=== PATIENT | male | born 1995 | race Caucasian/White ===

== ENCOUNTER 2021-02-16 08:44 | Inpatient (IN) | payer OTHER ==
[~2021-02-16] VITALS: Ht 180.3 cm; Wt 77.1 kg
[2021-02-16] VITALS (19 sets, daily range): BP systolic 107–144; BP diastolic 63–89
[2021-02-16 09:20] LABS: BASOPHILS % (AUTO) 0.2 % (0.0-5.0); EOSINOPHILS % (AUTO) 0.2 % (0.0-8.0); LYMPHOCYTES % (AUTO) 9.6 % (21.0-51.0); MEAN CORPUSCULAR HEMOGLOBIN 29.5 pg (27.0-33.0); MEAN CORPUSCULAR HGB CONC 34.3 g/dL (32.0-36.0); MEAN CORPUSCULAR VOLUME 86.1 fL (79-99); MONOCYTES % (AUTO) 8.4 % (3.0-13.0); NEUTROPHILS % (AUTO) 81.2 % (40.0-77.0); PLATELET COUNT (AUTO) 289 K/uL (130-400); RED BLOOD CELL COUNT(AUTO) 5.46 MIL/uL (4.50-6.20); RED CELL DISTRIBUTION WIDTH 11.9 % (11.0-15.5); WHITE BLOOD COUNT (AUTO) 16.3 K/uL (4.8-10.8)
[2021-02-16 09:21] LABS: APPEARANCE,URINE Clear (CLEAR); BILIRUBIN,URINE Negative (NEGATIVE); COLOR,URINE Yellow (YELLOW); GLUCOSE, URINE (UA) Negative (NEGATIVE); KETONES,URINE Trace mg/dL (NEGATIVE); LEUKOCYTE ESTERASE ,URINE Negative (NEGATIVE); NITRATE,URINE Negative (NEGATIVE); OCCULT BLOOD,URINE Negative (NEGATIVE); PROTEIN,URINE Negative (NEGATIVE)
[2021-02-16 09:22] LABS: BACTERIA,URINE Rare /HPF (None Seen); RBC,URINE 0-1 /HPF (0-1); WBC,URINE 0-1 /HPF (0-1)
[2021-02-16 09:23] LABS: SQUAMOUS EPITHELIAL CELL,UR Rare /HPF (0-2)
[2021-02-16 09:29] LABS: AMPHET/METH SCREEN,URINE NEGATIVE (NEGATIVE); BARBITURATE SCREEN, URINE NEGATIVE (NEGATIVE); BENZODIAZEPINES SCREEN,URINE NEGATIVE (NEGATIVE); CANNABINOID SCREEN,URINE NEGATIVE (NEGATIVE); COCAINE SCREEN,URINE NEGATIVE (NEGATIVE); OPIATE SCREEN,URINE NEGATIVE (NEGATIVE); PHENCYCLIDINE SCREEN,URINE NEGATIVE (NEGATIVE)
[2021-02-16 09:45] LABS: ALBUMIN 4.2 g/dL (3.5-5.0); BILIRUBIN,TOTAL 0.7 mg/dL (0.2-1.0); POTASSIUM 3.8 mmol/L (3.5-5.1); TOTAL PROTEIN, SERUM 7.3 g/dL (6.0-8.3)
[2021-02-16] MEDS ORDERED: MORPHINE SULFATE 4 MG/1ML SYG ONE ×2 (10:07→11:34)
[2021-02-16] MEDS ORDERED: ONDANSETRON HCL 4 MG/2 ML VIAL ONE ×2 (10:07→16:59)
[2021-02-16] MEDS ORDERED: ZOSYN 3.375GM+NS 50ML 50 ML IV ONE (11:23)
[2021-02-16] MEDS ORDERED: MORPHINE SULFATE 4 MG/1ML SYG IV PRN (12:00)
[2021-02-16] MEDS ORDERED: ACETAMINOPHEN 325 MG TAB PO PRN (12:00)
[2021-02-16] MEDS ORDERED: ONDANSETRON HCL 4 MG/2 ML VIAL IVP PRN (12:00)
[2021-02-16] MEDS ORDERED: MIDAZOLAM HCL 1 MG/ML 2ML VIAL ONE (16:59)
[2021-02-16] MEDS ORDERED: GLYCOPYRROLATE 1 MG/5 ML SYRINGE ONE (16:59)
[2021-02-16] MEDS ORDERED: PROPOFOL 10 MG/ML 20ML VIAL IV ONE (16:59)
[2021-02-16] MEDS ORDERED: LIDOCAINE PF 2% 5ML ABBOJECT ONE (16:59)
[2021-02-16] MEDS ORDERED: SUCCINYLCHOLINE 200MG/10ML SYR ONE (16:59)
[2021-02-16] MEDS ORDERED: DEXAMETHASONE SOD PHOSPHATE 10MG/ML 1ML VIAL ONE (16:59)
[2021-02-16] MEDS ORDERED: NEOSTIGMINE 5MG/5ML SYR IV ONE (16:59)
[2021-02-16] MEDS ORDERED: ROCURONIUM 10MG/1ML SYR 10 MG/ML ML ONE (17:00)
[2021-02-16] MEDS ORDERED: FENTANYL CITRATE PF 50 MCG/1 ML 2ML VIAL ONE ×2 (17:00→17:31)
[2021-02-16] MEDS ORDERED: ATROPINE SULFATE 0.1 MG/ML 10 ML SYG IVP ONE (17:01)
[2021-02-16] MEDS ORDERED: BUPIVACAINE/PF 0.25% 30ML VIAL IJ ONE (17:26)
[2021-02-16] MEDS ORDERED: LIDOCAINE 1%-EPI 1:100,000 20 ML VIAL IJ ONE (17:26)
[2021-02-16] MEDS ORDERED: MEPERIDINE-PF 25 MG/ML SYG ONE ×2 (18:48→19:01)
[2021-02-16] MEDS: OXYCODONE/ACETAMIN 5/325MG TAB PO PRN (21:03)
[2021-02-16] MEDS: ZOSYN 3.375GM+NS 50ML 50 ML IV SCH (21:03)
[2021-02-16] MEDS: SODIUM CHLORIDE 0.9% 1000ML 1,000 ML IV SCH (21:04)
[2021-02-17] MEDS: ZOSYN 3.375GM+NS 50ML 50 ML IV SCH ×2 (03:45→13:00)
[2021-02-17 05:31] VITALS: BP 103/52
[2021-02-17 05:37] LABS: BASOPHILS % (AUTO) 0.1 % (0.0-5.0); HEMATOCRIT 40.8 % (42-54); LYMPHOCYTES % (AUTO) 5.5 % (21.0-51.0); MEAN CORPUSCULAR HEMOGLOBIN 29.3 pg (27.0-33.0); MEAN CORPUSCULAR HGB CONC 33.6 g/dL (32.0-36.0); MEAN CORPUSCULAR VOLUME 87.4 fL (79-99); MONOCYTES % (AUTO) 4.1 % (3.0-13.0); NEUTROPHILS % (AUTO) 89.8 % (40.0-77.0); PLATELET COUNT (AUTO) 269 K/uL (130-400); RED BLOOD CELL COUNT(AUTO) 4.67 MIL/uL (4.50-6.20); RED CELL DISTRIBUTION WIDTH 11.8 % (11.0-15.5); WHITE BLOOD COUNT (AUTO) 13.3 K/uL (4.8-10.8)
[2021-02-17 05:53] LABS: ALBUMIN 3.4 g/dL (3.5-5.0); BILIRUBIN,TOTAL 0.8 mg/dL (0.2-1.0); POTASSIUM 4.3 mmol/L (3.5-5.1); TOTAL PROTEIN, SERUM 6.5 g/dL (6.0-8.3)
[2021-02-17] MEDS: OXYCODONE/ACETAMIN 5/325MG TAB PO PRN ×2 (07:43→13:06)
[2021-02-17 09:26] VITALS: BP 111/62
[2021-02-17] MEDS: SODIUM CHLORIDE 0.9% 1000ML 1,000 ML IV SCH ×2 (10:00)
[2021-02-17 12:00] VITALS: BP 126/58
[2021-02-17] MEDS ORDERED: LACTULOSE 20 GM/30 ML UDCUP ONE (12:56)
[2021-02-17] MEDS ORDERED: LACTULOSE 20 GM/30 ML UDCUP PO SCH (13:00)
== END 2021-02-17 14:15 | disposition home or self-care (01) | DRG 343 ==
LOC: EDH 08:44 → OBSVTOIN 11:57 → EDHIP 11:57 → 3DH 15:22
PROVIDERS: ADMIT Family Medicine; ATTEND Family Medicine
PROC: 0DTJ4ZZ Resection of Appendix, Percutaneous Endoscopic Approach (ICD-10-PCS; principal; 2021-02-16 17:58)
DX: K35.80 Unspecified acute appendicitis (principal); F17.200 Nicotine dependence, unspecified, uncomplicated; Z83.3 Family history of diabetes mellitus; Z82.49 Family history of ischemic heart disease and other diseases of the circulatory system; Z82.5 Family history of asthma and other chronic lower respiratory diseases; Z80.9 Family history of malignant neoplasm, unspecified
CPT/HCPCS: 36415; 74176; 80053; 80305; 81001; 83690; 85025; A4344; G0378; J0330; J0461; J1100; J2001; J2175; J2250; J2270; J2405; J2543; J2704; J2710; J3010; J3490; J7030; J7120